=== PATIENT | female | born 1990 | race Caucasian/White ===

== ENCOUNTER 2017-04-03 08:59 | Emergency (ER) | payer BC, SELFPAY | END 2017-04-03 09:58 | disposition home or self-care (01) | PROVIDERS: Emergency Provider Nurse Practitioner; Visit Provider Nurse Practitioner | DX: O98.519 Other viral diseases complicating pregnancy, unspecified trimester (principal); J06.9 Acute upper respiratory infection, unspecified; B33.8 Other specified viral diseases | CPT/HCPCS: 87804; 87880; 99201 ==

== ENCOUNTER → 2018-04-22 10:43 | Outpatient (CLI) | payer BC, SELFPAY | PROVIDERS: PCP Family Medicine; Visit Provider Family Medicine | DX: N20.0 Calculus of kidney (principal) ==

== ENCOUNTER 2021-07-26 12:21 | Emergency (ER) | payer BC, SELFPAY ==
[2021-07-26 13:24] VITALS: BP 0/0; PULSE 0; RESP 0; TEMP -17.7; TEMP 0
== END 2021-07-26 13:24 | disposition left against medical advice (07) ==
PROVIDERS: Emergency Provider Nurse Practitioner Family; PCP Family Medicine
DX: J02.9 Acute pharyngitis, unspecified (principal); H92.02 Otalgia, left ear; Z03.89 Encounter for observation for other suspected diseases and conditions ruled out; Z53.21 Procedure and treatment not carried out due to patient leaving prior to being seen by health care provider